=== PATIENT | female | born 1960 | race Caucasian/White ===

== ENCOUNTER 2017-01-06 10:36 | Emergency (ER) | payer SELFPAY ==
[~2017-01-06] VITALS: Ht 160 cm; Wt 49.2 kg
[2017-01-06 10:49] VITALS: BP 126/64; PULSE 63; RESP 16; TEMP 98.5; O2SAT 97
--- NOTE | 2017-01-06 11:07 | PD ---
HPI Chief Complaint: Cold / Flu Symptoms Time Seen by Provider: 11:01 Travel History International Travel<30 days: No Contact w/Intl Traveler<30days: No Traveled to known affect area: No History of Present Illness HPI 56-year-old female presents to the emergency department with the sudden onset fever, chills, bodyaches, cough, sore throat, and headache. Patient states fever of 103 last evening. Patient has been taking NyQuil over- the-counter with some relief. She is a smoker but denies significant productive cough or chest pain. Patient has had some nausea and vomiting but currently none. She denies urinary or vaginal symptoms. She denies abdominal pain. She has not had a flu shot this season. She is unsure of specific exposure. 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 She has no known drug allergies. PFSH Past Medical History Medical History: Denies Significant Hx Diminished Hearing: No Tetanus Vaccination: Unknown Influenza Vaccination: No ?: Not Past Surgical History Abdominal Surgery: Yes (Left kidney removed) Hysterectomy: Yes Social History Alcohol Use: Yes (twice a week) Tobacco Use: Yes (1 PPD) Substance Use: No Allergies-Medications (Allergen,Severity, Reaction): Coded Allergies: No Known Allergies (Unverified , 01/06/17) Reported Meds & Prescriptions Reported Meds & Active Scripts Active No Active Prescriptions or Reported Medications Review of Systems Except as stated in HPI: all other systems reviewed are Neg General / Constitutional: Positive: Fever, Chills Eyes: No: Visual changes HENT: Positive: Headaches, Sore Throat, Rhinitis, Rhinorrhea, Congestion, No: Vertigo, Lightheadedness, Nosebleed, Neck Stiffness, Neck Pain, Gingival Bleeding, Dental Difficulties, Ear Discharge, Earache Cardiovascular: No: Chest Pain or Discomfort Respiratory: Positive: Cough, No: Shortness of Breath, Wheezing, Sneezing, Orthopnea, Hemoptysis, Night Sweats, Pleuritic Pain Gastrointestinal: Positive: Nausea, Vomiting, No: Diarrhea, Abdominal Pain Genitourinary: No: Dysuria Musculoskeletal: Positive: Myalgias, No: Pain Skin: No Rash Neurologic: No: Weakness Psychiatric: No: Depression Endocrine: No: Polydipsia Hematologic/Lymphatic: No: Easy Bruising Physical Exam Narrative GENERAL: Patient appears ill but not septic. SKIN: Warm and dry. Normal color. Normal turgor. HEAD: Atraumatic. Normocephalic. EYES: Pupils equal and round. No scleral icterus. No injection or drainage. ENT: No nasal bleeding or discharge. Patient has moderate clear rhinitis. Mucous membranes pink and moist. Pharynx shows no significant erythema. Eyes are clear bilaterally. Airway is patent. NECK: Trachea midline. Neck is supple and nontender CARDIOVASCULAR: Regular rate and rhythm. RESPIRATORY: No accessory muscle use. Clear to auscultation. Breath sounds equal bilaterally. No wheezes rales or rhonchi. GASTROINTESTINAL: Abdomen soft, non-tender, nondistended. Hepatic and splenic margins not palpable. MUSCULOSKELETAL: Extremities without clubbing, cyanosis, or edema. No obvious deformities. NEUROLOGICAL: Awake and alert. No obvious cranial nerve deficits. Motor grossly within normal limits. Five out of 5 muscle strength in the arms and legs. Normal speech. PSYCHIATRIC: Appropriate mood and affect; insight and judgment normal. Data Data Last Documented VS Vital Signs Date Time Temp Pulse Resp B/P (MAP) Pulse Ox O2 Delivery O2 Flow Rate FiO2 01/06/17 10:49 98.5 63 16 126/64 (84) 97 Orders Orders Group A Rapid Strep Screen (01/06/17 11:02) Influenzae A/B Antigen (01/06/17 11:02) Strep Culture (Group A) (01/06/17 11:00) MDM Medical Decision Making Medical Screen Exam Complete: Yes Emergency Medical Condition: Yes Differential Diagnosis Febrile illness. Influenza. Viral syndrome. Strep throat. Narrative Course Rapid Influenza and strep were sent to the lab. Rapid influenza and strep are both negative. Patient will be treated with Tamiflu 75 mg twice a day 5 days for presumed influenza. Patient is given a note for work for no work until fever free for 24 hours. Patient is taking [id number] Tylenol and ibuprofen as well. Patient also given a prescription for Zofran 4 mg every 6 hours when necessary nausea. #12. Patient to rest push fluids and follow-up as needed. Diagnosis Primary Impression: Influenza Referrals: Primary Care Physician Patient Instructions: General Instructions Departure Forms: Work Release Enter return to work date: Jan 11, 2017 Special Instructions: Patient cannot return to work until she is fever free for greater than 24 hours. Additional Instructions: Rapid influenza and strep are both negative. Patient will be treated with Tamiflu 75 mg twice a day 5 days for presumed influenza. Patient is given a note for work for no work until fever free for 24 hours. Patient is taking [id number] Tylenol and ibuprofen as well. Patient also given a prescription for Zofran 4 mg every 6 hours when necessary nausea. #12. Patient to rest push fluids and follow-up as needed. Med/Other Pt SpecificInfo: Prescription(s) given Scripts No Active Prescriptions or Reported Meds Disposition: 01 DISCHARGE HOME Condition: Stable Schuyler Medina Jan 06, 2017 11:07
[2017-01-06] MEDS ORDERED: OSEL75 PO (11:33)
[2017-01-06] MEDS ORDERED: ZOFR4TAB PO (11:33)
== END 2017-01-06 11:48 | disposition home or self-care (01) ==
LOC: PHEFT 10:36
DX: J11.1 Influenza due to unidentified influenza virus with other respiratory manifestations (principal); R50.9 Fever, unspecified; M79.1 Myalgia; R05 Cough; R07.0 Pain in throat; R51 Headache; F17.200 Nicotine dependence, unspecified, uncomplicated
CPT/HCPCS: 87081; 87804; 87880; 99284

== ENCOUNTER 2017-02-24 10:45 | Emergency (ER) | payer SELFPAY ==
[~2017-02-24] VITALS: Ht 160 cm; Wt 48.0 kg
[~2017-02-24 10:45] MED LIST: OSEL75 PO; ZOFR4TAB PO
[2017-02-24 10:47] VITALS: BP 124/59; PULSE 94; RESP 16; TEMP 98.9; O2SAT 97
[2017-02-24 11:57] LABS: BACTERIA, URINE MOD /hpf; BILIRUBIN, URINE NEG (NEG); BLOOD, URINE MOD (NEG); GLUCOSE,URINE NEG (NEG); HYALINE CAST, URINE 2 /lpf (RARE); KETONE, URINE NEG (NEG); NITRITE,URINE NEG (NEG); PH, URINE 5.5 (5.0-8.5); SQUAMOUS EPITHELIAL CELL URINE 1 /hpf (0-5); URINE COLOR LIGHT-YELLOW (YELLW/STRAW); URINE LEUKOCYTE ESTERASE LARGE (NEG); WHITE BLOOD CELL CLUMPS MANY
[2017-02-24] MEDS ORDERED: LIDOCAINE HCL 1% 30 ML VIAL INFIL ONE (12:00)
[2017-02-24] MEDS ORDERED: IBUP-232 PO (12:02)
[2017-02-24] MEDS ORDERED: CEPH-460 PO (12:02)
--- NOTE | 2017-02-24 12:11 | PD ---
HPI Chief Complaint: Flank/Kidney Pain Time Seen by Provider: 10:00 Travel History International Travel<30 days: No Contact w/Intl Traveler<30days: No Traveled to known affect area: No History of Present Illness HPI 56-year-old female presents the emergency department with several day history of urinary urgency, burning, and frequency. Patient states this morning she woke up with some right flank pain which brought her into the emergency department today. She denies fever or chills.. No history of kidney stones in the past. 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 Patient states her back/flank pain is about a 5 out of 10. She has no known drug allergies. PFSH Past Medical History Diminished Hearing: No Past Surgical History Abdominal Surgery: Yes (Left kidney removed) Hysterectomy: Yes Social History Alcohol Use: Yes (twice a week) Tobacco Use: Yes (1 PPD) Substance Use: No Allergies-Medications (Allergen,Severity, Reaction): Coded Allergies: No Known Allergies (Unverified , 02/24/17) Reported Meds & Prescriptions Reported Meds & Active Scripts Active Ibuprofen 600 Mg Tab 600 Mg PO Q8H PRN 5 Days Keflex (Cephalexin) 500 Mg Cap 500 Mg PO Q6H 7 Days Zofran (Ondansetron HCl) 4 Mg Tab 4 Mg PO Q6HR PRN Tamiflu (Oseltamivir Phosphate) 75 Mg Cap 75 Mg PO BID 5 Days Review of Systems Except as stated in HPI: all other systems reviewed are Neg General / Constitutional: No: Fever, Chills Eyes: No: Visual changes HENT: No: Headaches Cardiovascular: No: Chest Pain or Discomfort Respiratory: No: Shortness of Breath Gastrointestinal: No: Abdominal Pain Genitourinary: Positive: Urgency, Frequency, Dysuria, Flank Pain, No: Pelvic Pain, Discharge Musculoskeletal: No: Pain Skin: No Rash Neurologic: No: Weakness Psychiatric: No: Depression Endocrine: No: Polydipsia Hematologic/Lymphatic: No: Easy Bruising Physical Exam Narrative GENERAL: Patient appears in no obvious distress. SKIN: Warm and dry. Normal color. Normal turgor. No rash. HEAD: Atraumatic. Normocephalic. EYES: Pupils equal and round. No scleral icterus. No injection or drainage. ENT: No nasal bleeding or discharge. Mucous membranes pink and moist. Sclerae clear. Airway is patent. NECK: Trachea midline. Supple and nontender. CARDIOVASCULAR: Regular rate and rhythm. RESPIRATORY: No accessory muscle use. Clear to auscultation. Breath sounds equal bilaterally. GASTROINTESTINAL: Abdomen soft, non-tender, nondistended. Hepatic and splenic margins not palpable. Patient has mild CVA tenderness on the right with percussion. MUSCULOSKELETAL: Extremities without clubbing, cyanosis, or edema. No obvious deformities. NEUROLOGICAL: Awake and alert. No obvious cranial nerve deficits. Motor grossly within normal limits. Five out of 5 muscle strength in the arms and legs. Normal speech. PSYCHIATRIC: Appropriate mood and affect; insight and judgment normal. Data Data Last Documented VS Vital Signs Date Time Temp Pulse Resp B/P (MAP) Pulse Ox O2 Delivery O2 Flow Rate FiO2 02/24/17 10:47 98.9 94 16 124/59 (80) 97 Room Air Orders Orders Urinalysis - C+S If Indicated (02/24/17 11:01) Urine Culture (02/24/17 11:15) Ceftriaxone Inj (Rocephin Inj) (02/24/17 12:00) Lidocaine 1% Inj (Xylocaine 1% Inj) (02/24/17 12:00) Labs Laboratory Tests Test 02/24/17 11:15 Urine Color LIGHT-YELLOW Urine Turbidity HAZY Urine pH 5.5 Urine Specific Gilman 1.006 Urine Protein 30 mg/dL Urine Glucose (UA) NEG mg/dL Urine Ketones NEG mg/dL Urine Occult Blood MOD Urine Nitrite NEG Urine Bilirubin NEG Urine Urobilinogen LESS THAN 2.0 MG/DL Urine Leukocyte Esterase LARGE Urine RBC 15 /hpf Urine WBC /hpf Urine WBC Clumps MANY Urine Squamous Epithelial Cells 1 /hpf Urine Bacteria MOD /hpf Urine Hyaline Casts 2 /lpf Microscopic Urinalysis Comment CULTURE INDICATED MDM Medical Decision Making Medical Screen Exam Complete: Yes Emergency Medical Condition: Yes Differential Diagnosis Urinary tract infection. Dysuria. Early pyelonephritis. Narrative Course Patient is medically stable at time of exam. Urinalysis is sent to the lab. Urinalysis strongly suggestive for urinary tract infection with early pyelonephritis. Urine culture is placed. Patient 1000 mg Rocephin IM. Patient continued on Keflex 500 mg 4 times a day 7 days. Given ibuprofen 600 mg 3 times a day when necessary back pain #15. Patient is instructed to push fluids and take Tylenol as well as needed. Patient follow local primary care physician, or return to emergency Department with worsening symptoms as discussed. Diagnosis Primary Impression: Dysuria Referrals: [facility] Primary Care PO Patient Instructions: Dysuria (ED), General Instructions Additional Instructions: Urinalysis strongly suggestive for urinary tract infection with early pyelonephritis. Urine culture is placed. Patient 1000 mg Rocephin IM. Patient continued on Keflex 500 mg 4 times a day 7 days. Given ibuprofen 600 mg 3 times a day when necessary back pain #15. Patient is instructed to push fluids and take Tylenol as well as needed. Patient follow local primary care physician, or return to emergency Department with worsening symptoms as discussed. Med/Other Pt SpecificInfo: Prescription(s) given Scripts Ibuprofen (Ibuprofen) 600 Mg Tab 600 MG PO Q8H Y for PAIN for 5 Days, #15 TAB 0 Refills Prov: Hardik Jama MD 02/24/17 Cephalexin (Keflex) 500 Mg Cap 500 MG PO Q6H for Infection for 7 Days, #28 CAP 0 Refills Prov: Hardik Jama MD 02/24/17 Disposition: 01 DISCHARGE HOME Condition: Stable Schuyler Medina Feb 24, 2017 12:11
== END 2017-02-24 13:08 | disposition home or self-care (01) ==
LOC: NEPD 10:45
DX: R30.0 Dysuria (principal); R39.15 Urgency of urination; R10.9 Unspecified abdominal pain; F17.200 Nicotine dependence, unspecified, uncomplicated
CPT/HCPCS: 81001; 87077; 87086; 87186; 96372; 99284; J0696

== ENCOUNTER 2017-07-19 15:34 | Emergency (ER) | payer SELFPAY ==
[~2017-07-19] VITALS: Ht 160 cm; Wt 51.0 kg
[~2017-07-19 15:34] MED LIST changes: +CEPH-460 PO; +IBUP-232 PO
[2017-07-19 15:36] VITALS: BP 130/60; PULSE 76; RESP 18; TEMP 98.9; O2SAT 98
--- NOTE | 2017-07-19 15:58 | PD ---
HPI Chief Complaint: Musculoskeletal Complaint Time Seen by Provider: 15:39 Travel History International Travel<30 days: No Contact w/Intl Traveler<30days: No Traveled to known affect area: No History of Present Illness HPI 57-year-old female presents to the emergency room for evaluation of right anterior shoulder pain for the past week. She denies history of the same. Denies trauma or injury to the area. 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 Patient took ibuprofen last night which took the edge off but did not significantly react her symptoms. Pain is worsened with certain range of motion. Improves with pressure and when she keeps it still. Also with certain range of motion, she experiences paresthesias. No chronic medical conditions or daily medications. PFSH Past Medical History Medical History: Denies Significant Hx Diminished Hearing: No Influenza Vaccination: No ?: Not Past Surgical History Abdominal Surgery: Yes (Left kidney removed) Hysterectomy: Yes Social History Alcohol Use: Yes (twice a week) Tobacco Use: Yes (1 PPD) Substance Use: No Allergies-Medications (Allergen,Severity, Reaction): Coded Allergies: No Known Allergies (Unverified , 07/19/17) Reported Meds & Prescriptions Reported Meds & Active Scripts Active No Active Prescriptions or Reported Medications Review of Systems Except as stated in HPI: all other systems reviewed are Neg Physical Exam Narrative GENERAL: Well-nourished, well-developed female in no acute distress. Afebrile. Ambulatory. SKIN: Focused skin assessment warm/dry. No erythema or ecchymosis. HEAD: Normocephalic. EYES: No scleral icterus. No injection or drainage. NECK: Supple, trachea midline. No JVD or lymphadenopathy. CARDIOVASCULAR: Regular rate and rhythm without murmurs, gallops, or rubs. RESPIRATORY: Breath sounds equal bilaterally. No accessory muscle use. MUSCULOSKELETAL: No cyanosis. Very minimal edema and moderate tenderness to palpation of the right anterior humeral head. Full range of motion but with moderate pain especially in the anterior humeral head. 2+ radial pulse. Radial , ulnar, and median nerves intact. Data Data Last Documented VS Vital Signs Date Time Temp Pulse Resp B/P (MAP) Pulse Ox O2 Delivery O2 Flow Rate FiO2 07/19/17 15:36 98.9 76 18 130/60 (83) 98 Orders Orders Ketorolac Inj (Toradol Inj) (07/19/17 16:00) [facility] Medical Decision Making Medical Screen Exam Complete: Yes Emergency Medical Condition: Yes Medical Record Reviewed: Yes Differential Diagnosis Bursitis, tendinitis, fracture, dislocation Narrative Course 57-year-old female presents to the emergency room for evaluation of right shoulder pain for the past week. She denies any trauma or injury. Pain started after she had to fold multiple beds in a row. Right upper extremity is neurovascularly intact with 2+ radial pulse and radial, ulnar, median and median nerves intact. There is mild edema and moderate tenderness to palpation of the right anterior humeral head. This is most consistent with soft tissue injury. She was given Toradol for pain. Patient was informed that x-ray will not be of any benefit. Told to follow-up with a primary care physician or return to the emergency room for worsening symptoms. She understands and agrees to plan. Diagnosis Primary Impression: Right anterior shoulder pain Referrals: Primary Care Physician Patient Instructions: General Instructions Additional Instructions: Rest and drink plenty of fluids. Perform exercises as shown. Take ibuprofen with food as directed, as needed for pain. Apply ice to the affected area for 20 minutes at a time, as needed for pain and swelling. Follow-up with a primary care physician. Return to the emergency room for worsening symptoms. Med/Other Pt SpecificInfo: Prescription(s) given Scripts No Active Prescriptions or Reported Meds Disposition: 01 DISCHARGE HOME Condition: Stable Agustina Clemons July 19, 2017 15:58
[2017-07-19] MEDS ORDERED: IBUP-232 PO (15:59)
[2017-07-19] MEDS ORDERED: KETOROLAC TROMETHAMINE 60 MG/2 ML (IM) VIAL IM ONE (16:00)
== END 2017-07-19 16:08 | disposition home or self-care (01) ==
LOC: PHEFT 15:34
DX: M25.511 Pain in right shoulder (principal); Z72.0 Tobacco use
CPT/HCPCS: 96372; 99283; J1885

== ENCOUNTER 2017-11-08 08:41 | Observation (INO) ==
[2017-11-08 09:51] LABS: Baso % (Auto) 0.7 % (0.0-2.0); Eos # (Auto) 0.1 th/mm3 (0.0-0.4); Eos % (Auto) 1.7 % (0.0-4.0); Hematocrit 48.9 % (35.0-46.0); Hemoglobin 16.8 gm/dL (11.6-15.3); Lymph # (Auto) 1.4 th/mm3 (1.0-4.8); Mean Corpuscular HGB Conc 34.3 % (32.0-36.0); Mean Corpuscular Hemoglobin 34.2 pg (27.0-34.0); Mean Corpuscular Volume 99.8 fL (80.0-100.0); Mean Platelet Volume 8.1 fL (7.0-11.0); Mono # (Auto) 0.5 th/mm3 (0.0-0.9); Mono % (Auto) 8.5 % (0.0-8.0); Neut # (Auto) 3.5 th/mm3 (1.8-7.7); Neut % (Auto) 63.1 % (16.0-70.0); Platelet Count 218 th/mm3 (150-450); Red Cell Distribution Width 13.2 % (11.6-17.2); White Blood Count 5.6 th/mm3 (4.0-11.0)
--- NOTE | 2017-11-08 09:54 | XR ---
EXAM DATE: 11/08/2017 9:44 AM EDT AGE/SEX: 57 years / Female INDICATIONS: Chest pain. CLINICAL DATA: This is the patient's initial encounter. Patient reports that signs and symptoms have been present for 1 week and indicates a pain score of 5/10. MEDICAL/SURGICAL HISTORY: . smoker None. COMPARISON: No prior exams available for comparison. FINDINGS: A single AP view of the chest demonstrates the lungs to be symmetrically aerated without evidence of mass, infiltrate or effusion. The cardiomediastinal contours are unremarkable. Osseous structures a re intact. CONCLUSION: Negative examination. Electronically signed by: [place] Polanco MD 11/08/2017 9:53 AM EDT
[2017-11-08 10:23] LABS: Alkaline Phosphatase 57 U/L (45-117); Total Protein 7.5 g/dL (6.4-8.2)
[2017-11-08 10:28] LABS: Alanine Aminotransferase 16 U/L (10-53); Albumin 3.6 g/dL (3.4-5.0); Anion Gap 8 meq/L (5-15); Aspartate Aminotransferase 20 U/L (15-37); Blood Urea Nitrogen 14 mg/dL (7-18); Calcium 8.6 mg/dL (8.5-10.1); Carbon Dioxide 24.7 meq/L (21.0-32.0); Chloride 106 meq/L (98-107); Glomerular Filtration Rate 49 mL/min (>89); Glucose,Random 79 mg/dL (74-106); Lipase 251 U/L (73-393); Magnesium 1.9 mg/dL (1.5-2.5); Sodium 139 meq/L (136-145)
[2017-11-08 10:40] LABS: Potassium 4.4 meq/L (3.5-5.1)
[2017-11-08 11:23] VITALS: RESP 18
--- NOTE | 2017-11-08 11:23 | ED ---
HPI General Chief Complaint: Chest Pain Stated Complaint: Chest Pain Time Seen by Provider: 11/08/17 09:16 Source: patient Mode of arrival: ambulatory Limitations: no limitations History of Present Illness HPI narrative: 57-year-old female arrives with complaint of chest pain with a stabbing quality in the region of the sternum in the region of the right chest. The onset as noted at rest. Again was bothersome this morning. Duration is been about a month. No shortness of breath fever chills or cough. The patient smokes tobacco. She has a history of myocardial infarction in the father. The patient's maternal grandmother also had coronary disease. Patient describes numbness tingling in the legs and arms this morning which has resolved completely. No weakness or loss of conscious. No change in mentation. MD complaint: chest pain Complete Quality Measures for STEMI Alert Patients STEMI Alert: No Onset (ago): week(s) Related Data Allergies Allergy/AdvReac Type Severity Reaction Status Date / Time No Known Allergies Allergy Unverified 07/19/17 15:36 Review of Systems ROS: all other systems reviewed are negative Constitutional Denies fever(s) PMFSH Medical History Medical History H/O: hysterectomy (Acute) Surgical History Surgical History History of nephrectomy (Acute) Social History Social History Substance History: No History of Abuse Second Hand Smoke Exposure: Yes Smoking Status: Current every day smoker Tobacco Type: Cigarettes How Often Do You Have a Drink Containing Alcohol: 2 to 4 times a month Recent Travel in [facility] within the Last 8 Weeks: No Recent Out of Country Travel within the Last 8 Weeks: No Immunization History Tetanus Immunization: Unable to Assess Hx Influenza Vaccine This Season: No Exam Narrative Exam Narrative: GENERAL: 57-year-old female pleasant well-nourished well- developed no acute distress SKIN: Focused skin assessment warm/dry. HEAD: Atraumatic. Normocephalic. EYES: Pupils equal and round. No scleral icterus. No injection or drainage. ENT: No nasal bleeding or discharge. Mucous membranes pink and moist. NECK: Trachea midline. No JVD. CARDIOVASCULAR: Regular rate and rhythm. No murmur appreciated. RESPIRATORY: No accessory muscle use. Clear to auscultation. Breath sounds equal bilaterally. GASTROINTESTINAL: Abdomen soft, non-tender, nondistended. Hepatic and splenic margins not palpable. MUSCULOSKELETAL: No obvious deformities. No clubbing. No cyanosis. No edema. NEUROLOGICAL: Flexion extension of the ankles and toes normal and equal bilaterally. Hip flexion intact bilaterally. Sensation is normal bilateral lower extremities. PSYCHIATRIC: Appropriate mood and affect; insight and judgment normal. Course Initial Documented Vital Signs Temperature 97.9 F 11/08/17 08:47 Pulse Rate 69 11/08/17 08:47 Respiratory Rate 20 11/08/17 08:47 Blood Pressure 157/66 H 11/08/17 08:47 Pulse Oximetry 100 11/08/17 08:47 Last Documented Vital Signs Temperature 97.9 F 11/08/17 08:47 Pulse Rate 62 11/08/17 09:36 Respiratory Rate 16 11/08/17 09:36 Blood Pressure 146/70 H 11/08/17 09:36 Pulse Oximetry 100 11/08/17 09:36 Medical Decision Making MDM Narrative Medical decision making narrative: The patient 57 years old. She has a very low suspicion story with risk factors including cigarette smoking in family history for coronary disease. Initial workup is unremarkable. The numbness and tingling is transitory and I do not believe it reflects a stroke or acute [employer] pathology. Patient is agreeable to chest pain center protocol for further investigation to coronary disease which is considered reasonable given age and risk factors. Medical Screen Exam Complete: Yes Emergency Medical Condition: Yes Lab Data Result diagrams: 11/08/17 09:30 11/08/17 09:30 Lab Results 11/08/17 11/08/17 Range/Units 09:30 09:30 WBC 5.6 (4.0-11.0) th/mm3 RBC 4.90 (4.00-5.30) mil/mm3 Hgb 16.8 H (11.6-15.3) gm/dL Hct 48.9 H (35.0-46.0) % MCV 99.8 (80.0-100.0) fL MCH 34.2 H (27.0-34.0) pg MCHC 34.3 (32.0-36.0) % RDW 13.2 (11.6-17.2) % Plt Count 218 (150-450) th/mm3 MPV 8.1 (7.0-11.0) fL Neut % (Auto) 63.1 (16.0-70.0) % Lymph % (Auto) 26.0 (9.0-44.0) % Wetzel % (Auto) 8.5 H (0.0-8.0) % Eos % (Auto) 1.7 (0.0-4.0) % Baso % (Auto) 0.7 (0.0-2.0) % Neut # (Auto) 3.5 (1.8-7.7) th/mm3 Lymph # (Auto) 1.4 (1.0-4.8) th/mm3 Wetzel # (Auto) 0.5 (0.0-0.9) th/mm3 Eos # (Auto) 0.1 (0.0-0.4) th/mm3 Baso # (Auto) 0.0 (0.0-0.2) th/mm3 WBC Differential . Differential Comment Auto diff final Sodium 139 (136-145) meq/L Potassium 4.4 (3.5-5.1) meq/L Chloride 106 (98-107) meq/L Carbon Dioxide 24.7 (21.0-32.0) meq/L Anion Gap 8 (5-15) meq/L BUN 14 (7-18) mg/dL Creatinine 1.14 H (0.50-1.00) mg/dL Estimated GFR 49 L (>89) mL/min Random Glucose 79 (74-106) mg/dL Calcium 8.6 (8.5-10.1) mg/dL Magnesium 1.9 (1.5-2.5) mg/dL Total Bilirubin 0.3 (0.2-1.0) mg/dL AST 20 (15-37) U/L ALT 16 (10-53) U/L Alkaline Phosphatase 57 (45-117) U/L Troponin I Less than 0.02 L (0.02-0.05) ng/mL Total Protein 7.5 (6.4-8.2) g/dL Albumin 3.6 (3.4-5.0) g/dL Lipase 251 (73-393) U/L Serum Alcohol Less than 3 (0-5) mg/dL Imaging Data Radiologist's impression: Chest X-Ray 11/08/17 09:21 CONCLUSION: Negative examination. ECG Data EKG Prior to Arrival: No Attestation: I personally reviewed and interpreted this ECG as follows: (Sinus rate 66 normal axis intervals no ischemic injury) Discharge Plan Discharge Disposition Patient Disposition: 30 Still Patient Physicians Team ED Provider: Hardik Jama Primary Care Provider: Primary Care Cain,Gloria Discharge Instructions Patient Printed Instructions: Chest Pain (ED) Discharge Interventions Interventions: Vital Signs Last Done: 11/08/17 09:36 Status ED Status: With Doctor
[2017-11-08 12:39] VITALS: BP 142/65; PULSE 60; TEMP 98.3; O2SAT 97
--- NOTE | 2017-11-08 13:02 | P.HPCA ---
History of Present Illness Primary Care Physician: No Primary Care Physician Chief Complaint: Chest pain History of Present Illness: This is a 57-year-old female that presents to ED via private vehicle complaining a one weeks worth of intermittent chest discomfort. States it has been nonexertional. Usually lasts a few seconds. On average about 1 a day. She states change little bit last night when she was awoken with her discomfort. It was in the center of her chest again however much more intense. She rates it as a 10 out of 10. Discomfort did not radiate. Lasted about 30 seconds. Taking a deep breath seemed to help. Denies shortness of breath, nausea, or diaphoresis. Cannot recall ever having a cardiac workup. Denies any knowledge of hypertension, hyperlipidemia, diabetes, and CAD. Patient smokes about one half pack a series daily for about 30 years. Patient smokes about one half pack a series daily for 30 years. Father had CAD. - Diagnosis (1) Chest pain (2) Tobacco abuse Review of Systems General: Patient denies fevers, chills, and recent travel. HEENT: Patient denies headache, sore throat, difficulty swallowing. Cardiovascular: Has the chest discomfort as mentioned above. Denies sensation of heart beating rapidly or irregularly. No syncope. Denies diaphoresis. Respiratory: Denies shortness of breath or inspirational chest discomfort. Denies coughing wheezing or hemoptysis. GI: Patient denies nausea, vomiting, diarrhea, abdominal pain, bloody stools. Musculoskeletal: Patient denies joint pain or edema. Denies calf pain or edema. Neurovascular: Patient denies numbness, tingling, weakness in extremities. Denies headache. Endocrine: Denies polyuria and polydipsia. Hematologic: Denies easy bruising. Skin: Denies rash or itching. PMFSH - History History Provided By: Patient - Medical History Medical History: Medical History (Last Updated 11/08/17 @ 09:37 by [employer]) H/O: hysterectomy - Surgical History Surgical History: Surgical History (Last Updated 11/08/17 @ 09:37 by [employer]) History of nephrectomy - Tobacco History Second Hand Smoke Exposure: Yes Tobacco Use In Past 30 Days: Yes Smoking Status: Current every day smoker Tobacco Type: Cigarettes - Alcohol History How Often Do You Have a Drink Containing Alcohol: 2 to 4 times a month - Substance Use History Substance History: No History of Abuse - Travel History Recent Travel in the [place] Within the Last 8 Weeks: No Recent Travel Out of the Country Within the Last 8 Weeks: No - Immunization History Tetanus Immunization: Unable to Assess Hx Influenza Vaccine This Season: No Medications and Allergies Active Medications: Active Medications Sodium Chloride (Ns Flush) 2 ml IV.FLUSH UNSCH PRN PRN Reason: FLUSH AFTER USING IV ACCESS Allergies Allergy/AdvReac Type Severity Reaction Status Date / Time No Known Allergies Allergy Unverified 07/19/17 15:36 Exam Vital signs: Vital Signs 11/08/17 08:47 11/08/17 09:23 11/08/17 09:36 Temperature 97.9 F Pulse Rate 69 62 Respiratory Rate 20 16 Blood Pressure 157/66 H 146/70 H Pulse Oximetry 100 100 100 11/08/17 11:00 11/08/17 12:00 11/08/17 12:36 Temperature 98.3 F Pulse Rate 58 L 59 L 60 Respiratory Rate 18 18 18 Blood Pressure 130/74 124/72 142/65 H Pulse Oximetry 100 97 Intake & Output 11/07/17 11/08/17 11/08/17 18:59 06:59 18:59 Weight 47.627 kg Narrative: GENERAL: This is a well-nourished, well-developed patient, in no apparent distress. Patient speaks in clear complete sentences. Patient is pleasant. HEENT: Head is atraumatic and normocephalic. Neck is supple without lymphadenopathy and trachea is midline. No JVD or carotid bruits. CARDIOVASCULAR: Regular rate and rhythm without murmurs, gallops, or rubs. RESPIRATORY: Clear to auscultation. Breath sounds equal bilaterally. No wheezes , rales, or rhonchi. Chest wall is nontender. No use of accessory muscles. GASTROINTESTINAL: Abdomen is nontender, nondistended. Abdomen soft. No obvious pulsatile mass or bruit. No CVA tenderness. Strong femoral pulses bilaterally. Normal bowel sounds in all quadrants. MUSCULOSKELETAL: Patient is moving upper and lower extremities freely. No calf tenderness or edema, no Homans sign. Strong pulses in upper and lower extremities. NEUROLOGICAL: Patient is alert and oriented. Cranial nerves 2-12 are grossly intact. No focal deficits and speech is clear. SKIN: No rash and turgor is normal. Results 11/08/17 09:30 11/08/17 09:30 Cardiac Enzymes 11/08/17 Range/Units 09:30 AST 20 (15-37) U/L Troponin I Less than 0.02 L (0.02-0.05) ng/mL CBC 11/08/17 Range/Units 09:30 WBC 5.6 (4.0-11.0) th/mm3 RBC 4.90 (4.00-5.30) mil/mm3 Hgb 16.8 H (11.6-15.3) gm/dL Hct 48.9 H (35.0-46.0) % Plt Count 218 (150-450) th/mm3 Neut # (Auto) 3.5 (1.8-7.7) th/mm3 Lymph # (Auto) 1.4 (1.0-4.8) th/mm3 [place] # (Auto) 0.5 (0.0-0.9) th/mm3 Eos # (Auto) 0.1 (0.0-0.4) th/mm3 Baso # (Auto) 0.0 (0.0-0.2) th/mm3 Comprehensive Metabolic Panel 11/08/17 Range/Units 09:30 Sodium 139 (136-145) meq/L Potassium 4.4 (3.5-5.1) meq/L Chloride 106 (98-107) meq/L Carbon Dioxide 24.7 (21.0-32.0) meq/L BUN 14 (7-18) mg/dL Creatinine 1.14 H (0.50-1.00) mg/dL Calcium 8.6 (8.5-10.1) mg/dL AST 20 (15-37) U/L ALT 16 (10-53) U/L Alkaline Phosphatase 57 (45-117) U/L Total Protein 7.5 (6.4-8.2) g/dL Albumin 3.6 (3.4-5.0) g/dL Intake and Output 11/07/17 11/08/17 11/08/17 22:59 06:59 14:59 Other: Weight 47.627 kg Patient Weight 11/09/17 06:59 Weight 47.627 kg EKG interpretations - EKG EKG shows: sinus rhythm (Initial EKG is sinus rhythm without significant ST segment depressions or elevations.) Caprini VTE Risk Assessment Caprini VTE Risk Assessment: No/Low Risk (score <= 1) Caprini Risk Assessment Model: Point Value = 1 Point Value = 2 Point Value = 3 Point Value = 5 Age 41-60 Minor surgery BMI > 25 kg/m2 Swollen legs Varicose veins or History of unexplained or recurrent spontaneous Oral contraceptives or hormone replacement Sepsis (< 1 month) Serious lung disease, including pneumonia (< 1 month) Abnormal pulmonary function Acute myocardial infarction Congestive heart failure (< 1 month) History of inflammatory bowel disease Medical patient at bed rest Age 61-74 Arthroscopic surgery Major open surgery (> 45 min) Laparoscopic surgery (> 45 min) Malignancy Confined to bed (> 72 hours) Immobilizing plaster cast Central venous access Age >= 75 History of VTE Family history of VTE Factor V Leiden Prothrombin [id number] Lupus anticoagulant Anticardiolipin antibodies Elevated serum homocysteine Heparin-induced thrombocytopenia Other congenital or acquired thrombophilia Stroke (< 1 month) Elective arthroplasty Hip, pelvis, or leg fracture Acute spinal cord injury (< 1 month) Prophylaxis Regimen: Total Risk Factor Score Risk Level Prophylaxis Regimen 0-1 Low Early ambulation 2 Moderate Order ONE of the following: *Sequential Compression Device (SCD) *Heparin 5000 units SQ BID 3-4 Higher Order ONE of the following medications: *Heparin 5000 units SQ TID *Enoxaparin/Lovenox 40 mg SQ daily (WT < 150 kg, CrCl > 30 mL/min) *Enoxaparin/Lovenox 30 mg SQ daily (WT < 150 kg, CrCl > 10-29 mL/min) *Enoxaparin/Lovenox 30 mg SQ BID (WT < 150 kg, CrCl > 30 mL/min) AND/OR *Sequential Compression Device (SCD) 5 or more Highest Order ONE of the following medications: *Heparin 5000 units SQ TID (Preferred with Epidurals) *Enoxaparin/Lovenox 40 mg SQ daily (WT < 150 kg, CrCl > 30 mL/min) *Enoxaparin/Lovenox 30 mg SQ daily (WT < 150 kg, CrCl > 10-29 mL/min) *Enoxaparin/Lovenox 30 mg SQ BID (WT < 150 kg, CrCl > 30 mL/min) AND *Sequential Compression Device (SCD) Assessment and Plan - Assessment (1) Chest pain Code(s): R07.9 - Chest pain, unspecified Status: Acute (2) Tobacco abuse Code(s): Z72.0 - Tobacco use Status: Acute - Plan * Chest pain: Patient has had first set of cardiac enzymes and EKGs. Her story seems atypical. However she does have risk factors for CAD. She will be seen by Dr. Lind of cardiology in the chest pain center. She will undergo a Austin protocol ETT and if nonischemic be discharged home with instructions to follow- up with local physician. Return to ED for interval issues. * Tobacco abuse: Patient counseled on the importance of smoking cessation. Patient is stable at this time. She is agreeable to this plan.
--- NOTE | 2017-11-08 13:42 | P.PNCA ---
Subjective Interval history: 57-year-old woman presents with complaints of atypical chest pain already seen and evaluated by the physician's assistant curator ruled out using standard chest pain center protocol for ACS. She was subsequently seen and examined personally and I personally performed her stress test. I am in agreement with documentation and have reviewed radiographic electrocardiogram and lab data. He will also personally spoken to the patient regarding need to stop smoking and exercise change of lifestyle Physical Exam Vital signs: Vital Signs 11/08/17 08:47 11/08/17 09:23 11/08/17 09:36 Temperature 97.9 F Pulse Rate 69 62 Respiratory Rate 20 16 Blood Pressure 157/66 H 146/70 H Pulse Oximetry 100 100 100 11/08/17 11:00 11/08/17 12:00 11/08/17 12:36 Temperature 98.3 F Pulse Rate 58 L 59 L 60 Respiratory Rate 18 18 18 Blood Pressure 130/74 124/72 142/65 H Pulse Oximetry 100 97 Intake & Output 11/07/17 11/08/17 11/08/17 18:59 06:59 18:59 Weight 47.627 kg Narrative: I am in agreement with objective data as documented with the addition that she is relatively thin and shows typical long-term skin body habitus change of chronic smoker. Assessment and Plan - Assessment (1) Chest pain Code(s): R07.9 - Chest pain, unspecified Status: Acute Plan: Current chest pain appears to be noncardiac in origin. Patient is educated in regards to cigarette cessation and lifestyle changes. She is also encouraged to establish with a primary care physician for further outpatient follow-up. 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 (2) Tobacco abuse Code(s): Z72.0 - Tobacco use Status: Acute - Plan * Chest pain: Patient has had first set of cardiac enzymes and EKGs. Her story seems atypical. However she does have risk factors for CAD. She will be seen by Dr. Lind of cardiology in the chest pain center. She will undergo a Austin protocol ETT and if nonischemic be discharged home with instructions to follow- up with local physician. Return to ED for interval issues. * Tobacco abuse: Patient counseled on the importance of smoking cessation. Patient is stable at this time. She is agreeable to this plan.
--- NOTE | 2017-11-08 18:39 | ECG ---
Date Performed: 11/08/2017 Time Performed: 08:55:20 PTAGE: 57 years EKG: Sinus rhythm NORMAL ECG NO PREVIOUS TRACING DOCTOR: Serafin Casey Interpretating Date/Time 11/08/2017 18:38:46
--- NOTE | 2017-11-09 13:47 | TR ---
Date Performed: 11/08/2017 Time Performed: 13:12:23 DOCTOR: Travis Lind DRUG LIST: CLINICAL HISTORY: REASON FOR TEST: REASON FOR ENDING: OBSERVATION: CONCLUSION: Patient exercised using the Austin protocol. She exhibited a good work level with no symptoms. She showed some J-point depression but with upsloping ST segments. No electrocardiograph ic changes were seen diagnostic of ischemia. Hemodynamic response to exercise was normal. No signific ant arrhythmia was present. COMMENTS: Low probability of significant ischemic heart disease
== END 2017-11-08 14:34 | disposition home or self-care (01) ==
LOC: NEPE 08:41 → NEDA 08:41 → NEPGCP 12:15
PROVIDERS: ADMIT Internal Medicine Interventional Cardiology; ATTEND Internal Medicine Interventional Cardiology